=== PATIENT | female | born 1960 | race Caucasian/White ===

== ENCOUNTER 2019-08-30 04:52 | Inpatient (IN) ==
--- NOTE | 2019-08-17 10:38 | PAT Medication Instructions ---
Medication Instructions Date of Service August 17, 2019 Home Medications acetaminophen [Tylenol Arthritis Pain] 650 mg PO Q12H PRN cholecalciferol (vitamin D3) [Vitamin D3] 5,000 unit PO QAM citalopram [Celexa] 20 mg PO QAM cyanocobalamin (vitamin B-12) 2,500 mcg PO QAM ibuprofen 800 mg PO DAILY PRN levothyroxine 50 mcg PO QAM meloxicam 7.5 mg PO QPM PRN multivitamin 1 tab PO QAM vitamin E 670 unit PO WK ASK your surgeon for instructions meloxicam 7.5 mg PO QPM PRN ibuprofen 800 mg PO DAILY PRN STOP taking 2 weeks before surgery vitamin E 670 unit PO WK DO NOT take the morning of surgery multivitamin 1 tab PO QAM cyanocobalamin (vitamin B-12) 2,500 mcg PO QAM cholecalciferol (vitamin D3) [Vitamin D3] 5,000 unit PO QAM Take morning of surgery With a small sip of water, OTHERWISE NOTHING TO EAT OR DRINK AFTER MIDNIGHT: levothyroxine 50 mcg PO QAM citalopram [Celexa] 20 mg PO QAM acetaminophen [Tylenol Arthritis Pain] 650 mg PO Q12H PRN (okay to take up to 4 hours prior to surgery if needed) Take evening before surgery acetaminophen [Tylenol Arthritis Pain] 650 mg PO Q12H PRN (if needed) Other Notes If you have any questions please call us at [phone] or [phone] or [phone] or [phone]
--- NOTE | 2019-08-18 12:51 | Anesthesiology Consultation ---
Date of Service August 18, 2019 Assessment & Plan (1) Encounter for pre-operative examination: Chart Review Chart Review: Acceptable Risk for Surgery (pending surgeon-ordered PCP clearance scheduled 08/19 (Dr. Baker)) and Patient seen in Pre Admission Testing Teaching & Discussion Pre-Anesthesia Teaching/Discussion Notes: Instructed NPO after midnight before surgery,except medications with 15 cc of water. Medication instructions prov ided according to the PAT guidelines. History Surgery Operation Date: 08/30/19 07:00 Proposed Procedures p Left Anterior Total Hip Arthroplasty - Silas Avilez DO Height/Weight Height: 5 ft 2.5 in Weight: 57.2 kg Allergies Allergy/AdvReac Type Severity Reaction Status Date / Time No Known Allergies Allergy Verified 08/11/19 11:31 Medications Home Medications Medication Instructions Recorded Confirmed Last Taken acetaminophen [Tylenol Arthritis 650 mg PO Q12H PRN 08/11/19 08/11/19 Unknown Pain] cholecalciferol (vitamin D3) 5,000 unit PO QAM 08/11/19 08/11/19 Unknown [Vitamin D3] citalopram [Celexa] 20 mg PO QAM 08/11/19 08/11/19 Unknown cyanocobalamin (vitamin B-12) 2,500 mcg PO QAM 08/11/19 08/11/19 Unknown ibuprofen 800 mg PO DAILY PRN 08/11/19 08/11/19 Unknown levothyroxine 50 mcg PO QAM 08/11/19 08/11/19 Unknown meloxicam 7.5 mg PO QPM PRN 08/11/19 08/11/19 Unknown multivitamin 1 tab PO QAM 08/11/19 08/11/19 Unknown vitamin E 670 unit PO WK 08/11/19 08/11/19 Unknown Past Medical History Medical History Anxiety Hypothyroidism Osteoarthritis Exercise / Class Metabolic Activity II 4-5 Yardwork/Stairs/Walk up hill Past Surgical History Surgical History History of bilateral tubal ligation History of carpal tunnel release RIGHT History of tooth extraction FOR ABSCESS TOOTH- A CHILD Past Anesthesia History No Hx of Anesthesia Complications and No Family Hx of Anesthesia Complications History of PONV No Hx of PONV and No Hx of Motion Sickness Social History Smoking Status: Current every day smoker tobacco type: cigarettes Smoking cigarettes per day: TRYING TO DECREASE- 1/2 PPD X 30 OFF AND ON Do You Dip or Chew Tobacco: No Hx Alcohol Use: Yes Alcohol type: beer and wine alcohol intake frequency: a few times a week Hx Substance Use: No Review of Systems Patient denies chest pain, shortness of breath, dyspnea on exertion, reflux, cough, wheezing, palpitations. Physical Exam Vital Signs VITALS BP 111/73 P 69 TEMP 98.2 SP02 98%RA RESP 16 PHYSICAL Full neck and c-spine range of motion. Full TMJ range of motion. TMD 3 finger breaths Mallampati Score 2 Dentition: intact Lungs: clear throughout to auscultation Cardiac: regular rate and rhythm, no murmurs noted Spine: normal Carotid arteries: negative bruit Extremities: no edema Testing Laboratory Results 08/18/19 13:07 08/18/19 13:07 PT 10.3 Seconds (9.0-12.0) 08/18/19 13:07 INR 1.0 (0.9-1.1) 08/18/19 13:07 APTT 27.0 Seconds (21.0-31.0) 08/18/19 13:07 Hemoglobin A1c 5.6 % (4.5-5.6) 08/18/19 13:07 Urine Color Yellow 08/18/19 13:07 Urine Appearance Clear (Clear) 08/18/19 13:07 Urine pH 5.0 (4.5-7.5) 08/18/19 13:07 Ur Specific [place] 1.024 (1.000-1.030) 08/18/19 13:07 Urine Protein Negative (Negative) 08/18/19 13:07 Urine Glucose (UA) Negative (Negative) 08/18/19 13:07 Urine Ketones Negative (Negative) 08/18/19 13:07 Urine Nitrite Negative (Negative) 08/18/19 13:07 Ur Leukocyte Esterase Negative (Negative) 08/18/19 13:07 Blood Type O Positive 08/18/19 13:07 Antibody Screen NEGATIVE 08/18/19 13:07 Electrocardiogram Date: 08/18/19 Findings: + NSR @ (69) Chest X-Ray Date: 08/18/19 Findings: + NAD
--- NOTE | 2019-08-18 13:51 | XRay Report ---
XR chest Pre-admission PA/Lat CLINICAL HISTORY: Preoperative chest COMPARISON STUDY: No previous studies for comparison. FINDINGS: The cardiac and mediastinal contours are normal. There is no evidence of focal pulmonary co nsolidation. There is no evidence of failure. No pleural effusions are visualized.[ IMPRESSION: No active disease in the chest. ACT 112: Negative or not required by law. Electronically signed by: Adama Vang M.D. 08/18/2019 1:50 PM
[2019-08-18 14:03] LABS: Appearance Urine Clear (Clear); Bilirubin Urine Negative (Negative); Blood Urine Negative (Negative); Color Urine Yellow; Glucose Urine UA Negative (Negative); Ketones Urine Negative (Negative); Leukocyte Esterase Urine Negative (Negative); Nitrite Urine Negative (Negative); Protein Urine Negative (Negative); Specific Gravity Urine 1.024 (1.000-1.030); Urobilinogen Urine Negative (Negative)
[2019-08-18 14:07] LABS: Basophils # (auto) 0.02 K/uL (0-0.2); Basophils % (auto) 0.4 %; Eosinophils # (auto) 0.06 K/uL (0-0.5); Eosinophils % (auto) 1.1 %; Hematocrit (blood only) 37.2 % (37-47); Hemoglobin 12.4 g/dL (12.0-16.0); Immature Granulocytes # (auto) 0.02 K/uL (0.00-0.02); Immature Granulocytes % (auto) 0.4 %; Lymphocytes # (auto) 2.24 K/uL (1.2-3.4); Lymphocytes % (auto) 39.9 %; Mean Corpuscular Hemoglobin 31.2 pg (25-34); Mean Corpuscular Hgb Conc 33.3 g/dL (32-36); Mean Corpuscular Volume 93.5 fL (80-100); Mean Platelet Volume 10.2 fL (7.4-10.4); Monocytes # (auto) 0.38 K/uL (0.11-0.59); Monocytes % (auto) 6.8 %; Neutrophils % (auto) 51.4 %; Platelet Count 285 K/uL (130-400); RDW Coefficient of Variation 12.1 % (11.5-14.5); RDW Standard Deviation 41.3 fL (36.4-46.3); Red Blood Count 3.98 M/uL (4.2-5.4); White Blood Count 5.62 K/uL (4.8-10.8)
[2019-08-18 14:10] LABS: Albumin Level 3.9 gm/dl (3.4-5.0); BUN Creatinine Ratio 30.1 (10-20); Calcium 9.3 mg/dl (8.5-10.1); Creatinine Clr Calc Pharmacy 83.7 ml/min; Est GFR (African American) 117.3; Est GFR (Non-African American) 101.2; Potassium 4.6 mmol/L (3.5-5.1)
[2019-08-18 14:13] LABS: Estimated Average Glucose 114 mg/dl; Hemoglobin A1C 5.6 % (4.5-5.6)
[2019-08-18 14:14] LABS: Prothrombin Time 10.3 Seconds (9.0-12.0)
--- NOTE | 2019-08-18 15:04 | Electrocardiogram Report ---
Test Reason : Blood Pressure : / mmHG Vent. Rate : 069 BPM Atrial Rate : 069 BPM P-R Int : 120 ms QRS Dur : 072 ms QT Int : 412 ms P-R-T Axes : 022 039 049 degrees QTc Int : 441 ms Normal sinus rhythm Normal ECG No previous ECGs available Confirmed by Maldonado Sierra ([id number]) on 08/18/2019 3:04:30 PM Referred By: Silas Avilez Confirmed By:Ebenezer Sierra
--- NOTE | 2019-08-29 19:15 | History & Physical Report ---
Date of Service August 29, 2019 Assessment & Plan (1) Degenerative joint disease of left hip: I have indicated the patient for left anterior total hip replacement. The risks, benefits and complications of surgery were explained to the patient which include but not limited to infection, acute blood loss, DVT/PE, injury to nerves, vessels, bone, soft tissue, arthrofibrosis, chronic pain, failure of the prosthesis, hip dislocation, leg length discrepancy, need for additional surgery, cardiac and pulmonary events and . The patient wished to proceed with surgery and informed consent was obtained at this time. We will plan for ASA BID post-operatively for DVT prophylaxis. Upon discharge the patient will be discharged home with home health services. Appropriate clearances by PCP were obtained. History of Present Illness Chief Complaint: Left hip pain/djd Primary Care Provider: Suzan Baker MD The patient is a 59 year old female who presents with complaints of severe left hip pain and DJD. The patient has failed outpatient conservative treatments to this point which included NSAIDs, IA corticosteroid injection and a home exercise/walking program. The patient's pain and limited function have progressed to the point where they severely hinder their activities of daily living and they no longer tolerate exercise programs. They are requesting to proceed with total hip replacement surgery. Allergies Allergy/AdvReac Type Severity Reaction Status Date / Time Bee Stings Allergy Severe Swelling Uncoded 08/30/19 06:01 of Lip/Tongue/Throat Home Medications Home Medications Medication Instructions Recorded Confirmed Type acetaminophen [Tylenol Arthritis 650 mg PO Q12H PRN 08/11/19 08/30/19 History Pain] cholecalciferol (vitamin D3) 5,000 unit PO QAM 08/11/19 08/30/19 History [Vitamin D3] citalopram [Celexa] 20 mg PO QAM 08/11/19 08/30/19 History cyanocobalamin (vitamin B-12) 2,500 mcg PO QAM 08/11/19 08/30/19 History ibuprofen 800 mg PO DAILY PRN 08/11/19 08/30/19 History levothyroxine 50 mcg PO QAM 08/11/19 08/30/19 History meloxicam 7.5 mg PO QPM PRN 08/11/19 08/30/19 History multivitamin 1 tab PO QAM 08/11/19 08/30/19 History vitamin E 670 unit PO WK 08/11/19 08/30/19 History Past Med/Surg History Medical History Anxiety Hypothyroidism Osteoarthritis Surgical History History of bilateral tubal ligation History of carpal tunnel release RIGHT History of tooth extraction FOR ABSCESS TOOTH- A CHILD Social History Preferred Language: Lebanese Communication Ability: Effective Molding And Trim Installer Required: No Beliefs That Will Affect Care: None Current Living Situation: Spouse and Family Other Information That Helps Us Care for You: No Feels Safe at Home: Yes Safety Concerns: Feels Safe At This Time Smoking Status: Current every day smoker Tobacco Type: cigarettes ; Cigarettes Per Day: TRYING TO DECREASE- 1/2 PPD X 30 OFF AND ON ; Do You Dip or Chew Tobacco: No ; 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 Constitutional: WD/WN, vitals as above Eyes: PERRL, conjunctivae normal, anicteric sclerae ENMT: external ear and nose normal, oropharynx normal Neck: trachea midline, no thyromegaly Respiratory: normal respiratory effort, lungs clear to auscultation Cardiovascular: RRR, no murmur, no edema Gastrointestinal (Abdomen): normal bowel sounds, soft, nontender, no hepatosplenomegaly Musculoskeletal: no cyanosis or clubbing, extremities motor strength 5/5 Skin: no rashes, warm and dry Neurologic: patellar DTR's 2+ bilat, sensation intact Psychiatric: A+Ox3, euthymic affect Lymphatic: no cervical or axillary lymphadenopathy Results & Data Diagnostic Findings Multiple views of the hip demonstrates severe DJD with complete loss of the joint space. +osteophytes, +sclerosis, +subchondral cysts.
[2019-08-30] MEDS ORDERED: METOCLOPRAMIDE HCL 10 MG TABLET PO SCH (06:00)
[2019-08-30] MEDS ORDERED: GABAPENTIN 600 MG DOSE PO SCH (06:00)
[2019-08-30] MEDS ORDERED: TRANEXAMIC ACID 1,000 MG **IV Pre-op IV SCH (06:00)
[2019-08-30] MEDS ORDERED: TRANEXAMIC ACID 1,000 MG **IV Intra-op IV SCH (06:00)
[2019-08-30] MEDS ORDERED: CEFAZOLIN 2000MG 2,000 MG/15 ML SYR IV SCH (06:00)
[2019-08-30] MEDS ORDERED: FAMOTIDINE 20 MG TAB PO SCH (06:00)
[2019-08-30] MEDS ORDERED: CeleBREX 200 MG CAP PO SCH (06:00)
[2019-08-30] MEDS ORDERED: dexAMETHasone 4 MG TAB PO SCH (06:00)
[2019-08-30] MEDS ORDERED: ROPIVACAINE 0.5% HCL/PF 150 MG, BUPIVACAINE 0.5% MPF 30 ML, EPINEPHrine 30MG/30ML (OR U... INSTIL SCH (06:00)
[2019-08-30] MEDS ORDERED: LR 500ML BOLUS, THEN 15ML/HR IV SCH (06:00)
[2019-08-30] MEDS ORDERED: ACETAMINOPHEN 500 MG TAB PO SCH (06:00)
[2019-08-30] MEDS ORDERED: BUPIVACAINE 0.5 % 5 MG/1 ML PF 10ML VIAL ONE (06:39)
[2019-08-30] MEDS ORDERED: LIDOCAINE HCL 2% 2 ML VIAL/AMP(20MG/ML) INFIL ONE (06:40)
[2019-08-30] MEDS ORDERED: MIDAZOLAM HCL 1 MG/ML 2ML VIAL ONE ×2 (06:40)
[2019-08-30] MEDS ORDERED: PROPOFOL IV EMULSION 10 MG/ML 20 ML VIAL IV ONE (06:40)
[2019-08-30] MEDS ORDERED: fentaNYL citrate 100 MCG/2 ML VIAL ONE (06:40)
[2019-08-30] MEDS ORDERED: ONDANSETRON INJ 2 MG/ML 2 ML VIAL ONE (06:40)
--- NOTE | 2019-08-30 06:45 | History & Physical Bridge Note ---
Date of Service August 30, 2019 History & Physical Bridge Note I have examined the patient, reviewed the History & Physical and in the interval since the performance of the History & Physical I have noted the following changes of clinical significance: no changes noted
[2019-08-30] MEDS ORDERED: ATROPINE SULFATE 0.1 MG/ML 10ML SYR IV PRN (06:48)
[2019-08-30] MEDS ORDERED: ePHEDrine sulfate 50 MG/ML AMP IV PRN (06:48)
[2019-08-30] MEDS ORDERED: BACITRACIN INJ 50,000 UNIT VIAL ONE (06:49)
[2019-08-30] MEDS ORDERED: ORTHO JOINT ANESTHETIC ONE (06:49)
[2019-08-30] MEDS ORDERED: PHENYLEPHRINE 100MCG/ML 5ML SYR ONE (07:48)
[2019-08-30] MEDS ORDERED: ePHEDrine sulfate 50 MG/ML SYR ONE (07:48)
--- NOTE | 2019-08-30 08:52 | Post Operative Brief Note ---
Immediate Post Op Note v1 Date of Surgery August 30, 2019 Pre & Post Diagnosis Operation Date: 08/30/19 07:00 Pre-Op Diagnosis: LEFT HIP OSTEOARTHRITIS Post-Op Diagnosis: LEFT HIP OSTEOARTHRITIS I identified the patient and participated in the time-out.: Yes Procedure Operation Date: 08/30/19 07:00 Actual Procedures p Left Anterior Total Hip Arthroplasty(Left) - Silas Avilez DO Surgeon Silas Avilez DO Artificial Snow Making Machine Operator Reji Cunningham Estimated Blood Loss 75 Findings Consistent with Post-Op Diagnosis Fluids 1400 cc LR Specimens femoral head Anesthesia Type Spinal MAC Complications none Disposition Disposition: Recovery Room Overlapping Procedure I was present for: the critical portions of procedure. I was immediately available: during the entire case. Back up surgeon: was not required during procedure.
--- NOTE | 2019-08-30 08:55 | Operative Report ---
Post Operative Report Pre & Post Diagnosis Operation Date: 08/30/19 07:00 Pre-Op Diagnosis: LEFT HIP OSTEOARTHRITIS Post-Op Diagnosis: LEFT HIP OSTEOARTHRITIS I identified the patient and participated in the time-out.: Yes Procedure Operation Date: 08/30/19 07:00 Actual Procedures p Left Anterior Total Hip Arthroplasty(Left) - Silas Avilez DO Surgeon Silas Avilez DO Fermenter Helper Reji Cunningham Estimated Blood Loss 75 Findings Consistent with Post-Op Diagnosis Fluids 1400 cc LR Specimens femoral head Anesthesia Type Spinal MAC Complications none Disposition Disposition: Recovery Room Indications The patient is a 59-year-old female who presents with severe progressive left hip DJD who has failed outpatient conservative treatments. I indicated the patient for a anterior total hip replacement and the risks and benefits were explained in detail which include but not limited to infection, bleeding, blood clot, damage to surrounding bone, nerves, vessels, soft tissue, hip dislocation, failure of the prosthesis, leg length discrepancy, need for additional surgery and . The patient agreed to proceed with replacement of the hip and informed consent was obtained. Appropriate clearances were obtained. Description of Procedure COMPONENTS USED: [employer] hip system: Acetabulum size 48, femur size 6 high offset, femoral head 32-3, liner 4832, acetabular screw 25 mm x 1. DESCRIPTION OF PROCEDURE: Following satisfactory spinal anesthesia, the patient was placed supine on the OR table. The right leg was placed in the well leg crowder and the left leg in the traction device. The left leg was prepared with ChloraPrep and draped sterilely. A surgical timeout was performed, patient identified and site julia verified. Appropriate antibiotics were given. A standard anterior approach in the interval between the sartorius and tensor muscles was performed. Dissection was carried down through subcutaneous tissues. Electrocautery was utilized for hemostasis. Circumflex femoral vessels were identified, tied and ligated. The anterior capsular fat pad was removed and the capsulotomy was performed revealing the arthritic femoral neck and head. A femoral neck cut was made with reciprocating saw and the bone fragments removed. The acetabular self-retraining retractor was placed. Acetabular reaming was completed under fluoroscopic guidance, a 48 shell was impacted into an anatomic position and secured with a dome screw. Local anesthetic was placed and following irrigation, the polyethylene liner was placed. The femur was placed into position of external rotation, extension and adduction. Femoral canal was prepared up to the size 6 high offset. Trial reduction with a -3 neck length head showed good soft tissue tension, leg lengths restored, and good fit and fill of the proximal canal using fluoroscopic landmarks. The hip was dislocated. The trial component was removed. The final implant was placed. The hip was irrigated with sterile saline solution and reduced. A Betadine soak was performed. After 3 minutes, the hip was once more irrigated with copious sterile saline solution with bacitracin. Malika-incisional soft tissue was injected utilizing [place] [employer] which includes a combination of Ropivicaine 0.5% 150mg, Bupivicaine 0.5%/Epinephrine 1:200,000 30ml, Toradol 30mg, Dexamethasone 4mg, Ketamine 10mg, Clonidine 100mcg and NSS 30ml solution. The capsule was then closed with 1-0 Vicryl interrupted figure of eight sutures. The fascia was closed with a running suture of #1 Vicryl, the subcutaneous tissues with 2-0 Vicryl and the skin with a running subcuticular stitch of 3-0 V-Loc. Dermabond prineo and a dry dressing were applied. The patient tolerated the procedure well and was transported to PACU in stable condition. Due to the complex nature of the procedure, the entire surgery was performed with the operational assistance of Reji Cunningham PA-C. The professional nursing assistant, under direct supervision, was involved in the actual performance of all aspects of the surgical procedure including patient positioning, hemostasis, tissue r etraction, instrument management and wound closure. I attest to the content of the Intraoperative Record and any orders documented therein. Any exceptions are noted below.
[2019-08-30] MEDS ORDERED: METOCLOPRAMIDE HCL INJ 5 MG/ML 2 ML VIAL IV PRN (08:56)
[2019-08-30] MEDS ORDERED: OXYCODONE HCL IR 5 MG TAB (IMMEDIATE RELEASE) PO PRN (08:56)
[2019-08-30] MEDS ORDERED: MAGNESIUM HYDROXIDE SUSP 30 ML UDC PO PRN (08:56)
[2019-08-30] MEDS ORDERED: NALOXONE HCL 0.4 MG/1 ML VIAL/CARP IV PRN (08:56)
[2019-08-30] MEDS ORDERED: bisacodyL 10 MG SUPP PR PRN (08:56)
[2019-08-30] MEDS ORDERED: ONDANSETRON INJ 2 MG/ML 2 ML VIAL IV PRN (08:56)
--- NOTE | 2019-08-30 09:29 | XRay Report ---
XR hip 1V LT w pelvis CLINICAL HISTORY: Left hip replacement COMPARISON: None. DISCUSSION: There are postsurgical changes of a total left hip arthroplasty. The acetabular and femor al components appear well seated. There is no dislocation. There is gas present within the soft tissu es consistent with recent surgery. IMPRESSION: Postsurgical changes of a total left hip arthroplasty. No evidence of dislocation. ACT 112: Negative or not required by law. Electronically signed by: Adama Vang M.D. 08/30/2019 9:28 AM
--- NOTE | 2019-08-30 11:10 | Fluoroscopy Report ---
FL hip LT 1V CLINICAL HISTORY: LEFT ANTERIOR THAhip replacement COMPARISON STUDY: None FLUOROSCOPY TIME: 42 seconds NUMBER OF FLUOROSCOPIC IMAGES: 2 FINDINGS: Image intensifier was utilized for a left total hip arthroplasty. IMPRESSION: Image intensifier was utilized for a total left hip arthroplasty. ACT 112: Negative or not required by law. The above report was generated using voice recognition software. It may contain grammatical, syntax or spelling errors. Electronically signed by: Eddy Watkins M.D. 08/30/2019 11:09 AM
--- NOTE | 2019-08-30 11:48 | Anesthesiology Progress Note ---
Date of Service August 30, 2019 Anesthesia Post Procedure Vital Signs Vital Signs: Temp Pulse Pulse Resp BP Pulse Ox 08/30/19 11:02 36.4 C L 70 18 97/61 L 100 08/30/19 10:31 36.3 C L 67 18 98/62 L 98 08/30/19 10:00 36.5 C 74 16 91/58 L 100 08/30/19 09:45 36.4 C L 66 16 92/58 L 100 08/30/19 09:35 61 12 90/54 L 100 08/30/19 09:25 78 13 82/56 L 100 08/30/19 09:15 73 15 86/59 L 100 08/30/19 09:08 36.8 C 78 12 86/50 L 98 08/30/19 05:34 36.4 C L 73 20 108/73 100 Pain Intensity Left Hip: Pain Intensity: 4 Transfer of Care Handoff Completed per policy Notes Mental Status: alert / awake / arousable and participated in evaluation Patient Amnestic to Procedure: Yes Nausea / Vomiting: adequately controlled Pain: adequately controlled Airway Patency, RR, SpO2: stable & adequate BP & HR: stable & adequate Hydration State: stable & adequate Neuraxial Anesthesia: was administered and sensory block is resolving Anesthetic Complications: no major complications apparent
[2019-08-30] MEDS: KETOROLAC TROMETHAMINE 15 MG/ML VIAL IV SCH ×3 (12:08→22:39)
[2019-08-30] MEDS: MULTIVITAMIN TAB PO SCH (13:09)
[2019-08-30] MEDS: DOCUSATE SODIUM 100 MG CAP PO SCH ×2 (13:09→21:13)
[2019-08-30] MEDS: SODIUM CHLORIDE 0.9% 1000ML 1,000 ML IV SCH ×2 (13:10→18:32)
[2019-08-30] MEDS: ACETAMINOPHEN 500 MG TAB PO SCH ×2 (13:49→21:14)
--- NOTE | 2019-08-30 14:20 | Orthopedic Progress Note ---
Date of Service August 30, 2019 Assessment & Plan (1) Degenerative joint disease of left hip: s/p L anterior BART -ancef x 24 -DVT ppx: SCDs, TEDs, ASA BID -WBAT LLE -PT/OT -PO XR demonstrates well aligned well fixed prosthesis, without fracture/dislocation -am labs -DC planning Admission and Anticipated Discharge Date Admission Date: August 30, 2019 Subjective Post Operative Progress Note Patient seen sitting up in bed, comfortable, denies complaints, pain well controlled, no acute issues. Still feeling effects of spinal anesthesia. Review of Systems Review of Systems: All systems reviewed & are unremarkable except as noted in HPI & below Constitutional: as per Subjective / HPI Physical Exam Physical Exam: LLE PE limited secondary to spinal, +2 DP pulse compartments soft NT, dressing CDI Constitutional: WD/WN, vitals as above Results & Data ([facility]) Vital Signs (Past 12 Hours) Vital Signs Temp Pulse Pulse Resp BP Pulse Ox 08/30/19 13:10 36.4 C L 84 16 98/64 L 100 08/30/19 12:01 36.3 C L 61 16 95/62 L 100 08/30/19 11:02 36.4 C L 70 18 97/61 L 100 08/30/19 10:31 36.3 C L 67 18 98/62 L 98 08/30/19 10:00 36.5 C 74 16 91/58 L 100 08/30/19 09:45 36.4 C L 66 16 92/58 L 100 08/30/19 09:35 61 12 90/54 L 100 08/30/19 09:25 78 13 82/56 L 100 08/30/19 09:15 73 15 86/59 L 100 08/30/19 09:08 36.8 C 78 12 86/50 L 98 08/30/19 05:34 36.4 C L 73 20 108/73 100
[2019-08-30] MEDS: CEFAZOLIN 1000MG 1,000 MG/7.5 ML SYR IV SCH ×2 (15:12→22:59)
[2019-08-30] MEDS ORDERED: SENNA 8.6 MG TAB PO SCH (21:00)
[2019-08-31 05:38] LABS: Eosinophils # (auto) 0.01 K/uL (0-0.5); Eosinophils % (auto) 0.1 %; Hemoglobin 9.2 g/dL (12.0-16.0); Immature Granulocytes # (auto) 0.03 K/uL (0.00-0.02); Immature Granulocytes % (auto) 0.3 %; Lymphocytes # (auto) 1.42 K/uL (1.2-3.4); Lymphocytes % (auto) 14.6 %; Mean Corpuscular Hemoglobin 31.9 pg (25-34); Mean Corpuscular Hgb Conc 34.1 g/dL (32-36); Mean Corpuscular Volume 93.8 fL (80-100); Mean Platelet Volume 10.1 fL (7.4-10.4); Monocytes % (auto) 8.2 %; Neutrophils # (auto) 7.47 K/uL (1.4-6.5); Neutrophils % (auto) 76.8 %; Platelet Count 221 K/uL (130-400); RDW Standard Deviation 41.1 fL (36.4-46.3); Red Blood Count 2.88 M/uL (4.2-5.4); White Blood Count 9.73 K/uL (4.8-10.8)
[2019-08-31] MEDS: KETOROLAC TROMETHAMINE 15 MG/ML VIAL IV SCH (05:59)
[2019-08-31] MEDS: ACETAMINOPHEN 500 MG TAB PO SCH ×2 (06:00→13:34)
[2019-08-31 06:15] LABS: Calcium 8.4 mg/dl (8.5-10.1); Creatinine Clr Calc Pharmacy 106.8 ml/min; Est GFR (African American) 127.1; Est GFR (Non-African American) 109.6; Potassium 4.2 mmol/L (3.5-5.1)
--- NOTE | 2019-08-31 08:01 | Anesthesiology Progress Note ---
Date of Service August 31, 2019 Anesthesia Post Procedure Vital Signs Vital Signs: Temp Pulse Pulse Resp BP Pulse Ox 08/31/19 07:24 36.9 C 80 16 104/70 96 08/31/19 04:09 36.7 C 74 16 92/52 L 96 08/30/19 23:02 36.4 C L 68 18 93/61 L 97 08/30/19 20:00 36.7 C 85 16 104/68 99 08/30/19 15:17 36.7 C 72 16 92/54 L 98 08/30/19 13:10 36.4 C L 84 16 98/64 L 100 08/30/19 12:01 36.3 C L 61 16 95/62 L 100 08/30/19 11:02 36.4 C L 70 18 97/61 L 100 08/30/19 10:31 36.3 C L 67 18 98/62 L 98 08/30/19 10:00 36.5 C 74 16 91/58 L 100 08/30/19 09:45 36.4 C L 66 16 92/58 L 100 08/30/19 09:35 61 12 90/54 L 100 08/30/19 09:25 78 13 82/56 L 100 08/30/19 09:15 73 15 86/59 L 100 08/30/19 09:08 36.8 C 78 12 86/50 L 98 Pain Intensity Left Hip: Pain Intensity: 4 Notes Mental Status: alert / awake / arousable and participated in evaluation Nausea / Vomiting: adequately controlled Pain: adequately controlled Airway Patency, RR, SpO2: stable & adequate BP & HR: stable & adequate Hydration State: stable & adequate
[2019-08-31] MEDS: DOCUSATE SODIUM 100 MG CAP PO SCH (08:29)
[2019-08-31] MEDS: MULTIVITAMIN TAB PO SCH (08:30)
[2019-08-31] MEDS ORDERED: CeleBREX 200 MG CAP PO SCH (09:00)
[2019-08-31] MEDS ORDERED: ASPIRIN 325 MG ECTAB PO SCH ×2 (09:00→10:30)
--- NOTE | 2019-08-31 10:31 | Orthopedic Progress Note ---
Date of Service August 31, 2019 Assessment & Plan (1) Degenerative joint disease of left hip: s/p L anterior BART POD#1 -ancef x 24 -DVT ppx: SCDs, TEDs, ASA BID -WBAT LLE -PT/OT -PO XR demonstrates well aligned well fixed prosthesis, without fracture/dislocation -am labs- hgb 9.2, see above -DC planning - Home with HH Admission and Anticipated Discharge Date Admission Date: August 30, 2019 Subjective Post Operative Progress Note Patient seen sitting up in bed, comfortable, denies complaints, pain well controlled, no acute issues. Denies F/C/N/V/SOB/CP. Review of Systems Review of Systems: All systems reviewed & are unremarkable except as noted in HPI & below Constitutional: as per Subjective / HPI Physical Exam Physical Exam: LLE NVSI +EHL/FHL/TA/GS SILT grossly, +2 DP pulse, compartments soft NT, dressing cdi. Constitutional: WD/WN, vitals as above Results & Data ([place]) Vital Signs (Past 12 Hours) Vital Signs Temp Pulse Resp BP Pulse Ox 08/31/19 07:24 36.9 C 80 16 104/70 96 08/31/19 04:09 36.7 C 74 16 92/52 L 96 08/30/19 23:02 36.4 C L 68 18 93/61 L 97 Laboratory Results 08/31/19 08/31/19 Range/Units 05:03 05:03 WBC 9.73 (4.8-10.8) K/uL RBC 2.88 L (4.2-5.4) M/uL Hgb 9.2 L (12.0-16.0) g/dL Hct 27.0 L (37-47) % MCV 93.8 (80-100) fL MCH 31.9 (25-34) pg MCHC 34.1 (32-36) g/dL RDW Std Deviation 41.1 (36.4-46.3) fL RDW Coeff of Wong 12.0 (11.5-14.5) % Plt Count 221 (130-400) K/uL MPV 10.1 (7.4-10.4) fL Immature Gran % (Auto) 0.3 % Neut % (Auto) 76.8 % Lymph % (Auto) 14.6 % Sebastian % (Auto) 8.2 % Eos % (Auto) 0.1 % Baso % (Auto) 0.0 % Immature Gran # (Auto) 0.03 H (0.00-0.02) K/uL Neut # (Auto) 7.47 H (1.4-6.5) K/uL Lymph # (Auto) 1.42 (1.2-3.4) K/uL Sebastian # (Auto) 0.80 H (0.11-0.59) K/uL Eos # (Auto) 0.01 (0-0.5) K/uL Baso # (Auto) 0.00 (0-0.2) K/uL Sodium 140 (136-145) mmol/L Potassium 4.2 (3.5-5.1) mmol/L Chloride 110 H (98-107) mmol/L Carbon Dioxide 26 (21-32) mmol/L Anion Gap 4.0 (3-11) BUN 14 (7-18) mg/dl Creatinine 0.47 L (0.6-1.2) mg/dl Est Cr Clr Drug Dosing 106.8 ml/min Est GFR ( Amer) 127.1 Est GFR (Non-Af Amer) 109.6 BUN/Creatinine Ratio 29.0 H (10-20) Glucose 113 H (70-99) mg/dl Calcium 8.4 L (8.5-10.1) mg/dl
[2019-08-31 15:04] VITALS: BP 120/65; PULSE 86; TEMP 98.6; O2SAT 100
--- NOTE | 2019-08-31 18:10 | Discharge Summary ---
Date of Service August 31, 2019 Admission HPI Per Admitting Provider The patient is a 59 year old female who presents with complaints of severe left hip pain and DJD. The patient has failed outpatient conservative treatments to this point which included NSAIDs, IA corticosteroid injection and a home exercise/walking program. The patient's pain and limited function have progressed to the point where they severely hinder their activities of daily living and they no longer tolerate exercise programs. They are requesting to proceed with total hip replacement surgery. Principal Diagnosis Left anterior total hip replacement -left hip djd Discharge Exam LLE NVSI +EHL/FHL/TA/GS SILT grossly, +2 DP pulse, compartments soft NT, dressing cdi. Constitutional WD/WN, vitals as above Discharge Data Allergies Allergy/AdvReac Type Severity Reaction Status Date / Time Bee Stings Allergy Severe Swelling Uncoded 08/30/19 06:01 of Lip/Tongue/Throat Consultations 08/31/19 08:00 Consult Case Management - Discharge Planning Routine Procedures Performed Operation Date: 08/30/19 07:00 Actual Procedures p Left Anterior Total Hip Arthroplasty(Left) - Silas Avilez DO Ordered Studies 08/30/19 07:00 FL fluoroscopy <1hr Routine FL hip LT 1V Routine Hospital Course (1) Degenerative joint disease of left hip: The patient is a 59 -year-old female who presents with long standing history of severe left hip DJD and failed outpatient conservative treatments. The patient's symptoms have progressed to the point where it has been difficult to perform even normal activities of daily living. I indicated the patient for a left anterior total hip arthroplasty, the risks, benefits and complications of the procedure include but not limited to infection, bleeding, damage to bone, nerves, vessels, surrounding soft tissue, may develop blood clots, loss of function, leg length discrepancy, dislocation, failure of the components, loosening of the components, the need for additional surgery and . The patient wished to proceed with surgery at this time and informed consent was obtained. Hospital Course: On 08/30/19 the patient was taken to the operating room, adequate anesthesia administered and underwent a left anterior total hip arthroplasty. The patient tolerated the procedure well and was taken to the PACU in stable condition. Post-operatively the patient was started on a DVT ppx medication and given appropriate IV antibiotics. Consults were placed to physical therapy, occupational therapy and case management. On POD#1, the patient did well ov ernight and their pain was well controlled. Labs were drawn and the Hgb was 9.2. The patient progressed well with PT. Dressings were changed at this time and the incision was clean, dry and intact. On POD#2, The patients hospital stay was relatively uneventful and they were deemed stable by the orthopedic team and consultants to be discharged home with HH on 08/31/19. Discharge Instructions: Upon discharge the patient may weight bear as tolerates through their operative extremity. They were instructed to keep the incision clean and dry at all times. The patient may shower but should not submerge the incision, avoid bathing, pools and hot tubes. The patient was given a script for pain medication and should take as instructed. The patient was given a script for DVT ppx 325mg ASA BID and should take as directed. The patient was instructed to not drive or travel for long distances until cleared to do so. If the patient develops any symptoms of fevers, chills, nausea, vomiting, increased redness, swelling, pain or drainage from the surgical site, they should notify the office and/or proceed to the nearest emergency room. The patient should follow up in 10-14 days after surgery for their routine post-operative follow-up appointment and should call the office to confirm the date and time. s/p L anterior BART POD#1 -ancef x 24 -DVT ppx: SCDs, TEDs, ASA BID -WBAT LLE -PT/OT -PO XR demonstrates well aligned well fixed prosthesis, without fracture/dislocation -am labs- hgb 9.2, see above -DC planning - Home with HH Total Time Total Time Spent Total Time Spent (In Minutes): 30 minutes Discharge Plan Discharge Items Patient Disposition: Home - Home Health Services Reason For Visit: LEFT HIP OSTEOARTHRITIS Discharge Diagnosis: Left total hip replacement -left hip djd Condition on Discharge: Good Activity: Per Instructions section Lifting: Wait until after follow-up appointment Bathing: Keep incision dry Bathing Comment: No bathing, pools or hot tubs Sexual Activity: Wait until after follow-up appointment Exercise/Sports: Wait until after follow-up appointment Driving/Machine Use: No driving Weightbearing: Full weightbearing Non-emergency contact: Primary Care Provider and Surgeon Call non-emergency contact if: you have any medication questions, your symptoms worsen, your pain is not controlled, your pain is worsening, your pain is unusual for you, your pain is concerning for you, you have a fever, your temperature is above 101, your wound has increased redness, your wound has increased drainage and your wound pain has increased Follow-up/Referrals: Suzan Baker MD [Primary Care Provider] - Diet: Regular Addtl Attending Provider Instructions: ACTIVITY RECOMMENDATIONS: SELF CARE INSTRUCTIONS AFTER TOTAL HIP REPLACEMENT : Direct Anterior Approach Until the incision and soft tissues around your hip have healed, there is a possibility that the hip prosthesis could dislocate. A. Hip flexion ( Up & Down out of chair or steps ) may be difficult. This is normal. B. Numbness in front of the thigh is also normal for a few weeks. C. Use hand rails when walking on stairs. D. Wear low heeled shoes with non-slip soles. E. Be sure that your floors are free of things that could trip you - throw rugs, electrical cords, small objects. Avoid wet and waxed floors, especially with crutches and canes. F. Try to walk several times a day with rest periods between. G. Continue with all the exercises taught to you in the hospital. Again, make walking a part of your daily routine. SPECIAL CARE INSTRUCTIONS: VERY IMPORTANT TO READ AND REVIEW A. You may still be at risk for phlebitis and blood clots. 1. Wear surgical stockings (DUDLEY hose) for 2 weeks after surgery to improve circulation and reduce swelling. 2. Take Aspirin 325mg twice daily for 4 weeks or as directed by your doctor. This is your blood thinner. 3. High risk patients may be prescribed a stronger blood thinner if necessary. 4. If you are on Coumadin normally, your family doctor/wine and spirits clerk should monitor your blood work. Expect a phone call the day of or the day after bloodwork is drawn to adjust your dosage. B. You must take antibiotics before having dental work, bladder, bowel and other surgery. Your doctor will provide you with a permanent card to carry describing precautions. C. Call [facility] if you have a fever, redness or swelling around the incision, cloudy drainage from incision, or sudden increase in pain in your hip, not relieved by your regular pain medication. D. Please call the office at if you have any concerns or questions about your operation or recovery. * YOU MAY SHOWER, NO TUB BATHS UNTIL CLEARED BY YOUR DOCTOR. - Keep an extra close eye on the top portion of your incision. Be sure to ke ep clean & dry. * WEAR DUDLEY HOSE 20 HOURS PER DAY FOR 2 WEEKS. * YOU MAY PROGRESS FROM A WALKER, TO A CANE, TO INDEPENDENT AT YOUR OWN PACE. * MOST PATIENTS WILL HAVE HOME NURSING FOR THERAPY. IF YOU DECIDE TO DO OUTPATIENT PHYSICAL THERAPY, PLEASE SCHEDULE THIS 3 TIMES PER WEEK. * DERMABOND Prineo- This is a mesh tape dressing that is covered with glue. It should remain in place until the incision is properly healed, usually 10-14 days. This dressing is designed to naturally slough off. You may trim the excess mesh tape as it peels off. Incision may be briefly wet in a shower. Dry immediately by blotting with a clean, dry towel. Do not bath or swim until instructed by your doctor. Do not scratch, rub, or pick at the dressing. Do not apply any topical ointments or lotions until dressing is completely removed and/or instructed by your doctor. There may be a small piece of suture material at one end of your incision. Do not pull or trim this. If it is bothersome or catching on clothing, you may cover it with a band-aid. FOLLOW UP VISIT: If appointment is not already scheduled: Please call [facility] to make a follow-up appointment for 2 weeks after your surgery at . Pending Studies at Discharge: No Stand-Alone Forms: My [facility], Opioid Pain Management, Smoking Cessation Medications and DC Order Prescriptions: New celecoxib [Celebrex] 200 mg Capsule 200 mg PO BID PRN (Reason: pain/inflammation) Qty: 28 RF: 0 acetaminophen 500 mg Tablet 1,000 mg PO Q8 PRN (Reason: pain/fevers) Qty: 90 RF: 0 aspirin 325 mg Tablet,Delayed Release (Dr/Ec) 325 mg PO BID Qty: 56 RF: 0 oxycodone 5 mg Tablet 5 mg PO Q6H MDD 4 tabs PRN (Reason: pain) Qty: 30 RF: 0 sennosides [Senokot] 8.6 mg Tablet 17.2 mg PO HS PRN (Reason: constipation) Qty: 28 RF: 0 Continued vitamin E 600 unit Capsule 670 unit PO WK RF: 0 citalopram [Celexa] 20 mg Tablet 20 mg PO QAM RF: 0 levothyroxine 50 mcg Tablet 50 mcg PO QAM RF: 0 cholecalciferol (vitamin D3) [Vitamin D3] 125 mcg (5,000 unit) Tablet 5,000 unit PO QAM RF: 0 cyanocobalamin (vitamin B-12) 2,500 mcg Tablet 2,500 mcg PO QAM RF: 0 multivitamin Tablet 1 tab PO QAM RF: 0 Discontinued ibuprofen 800 mg Tablet 800 mg PO DAILY PRN (Reason: Pain) RF: 0 acetaminophen [Tylenol Arthritis Pain] 650 mg Tablet Extended Release 650 mg PO Q12H PRN (Reason: Pain) RF: 0 meloxicam 7.5 mg Tablet 7.5 mg PO QPM PRN (Reason: Pain) RF: 0 Discharge Orders: Discharge Order (Routine); Ordered 08/31/19 Ordered By: Silas Avilez Admission Data Admit Date/Time: 08/30/19 08:56 Attending Provider: Silas Avilez Admit Provider: Silas Avilez Primary Care Provider: Suzan Baker Other Interventions: Discharge Summary Assessment (RN) Last Done: 08/31/19 12:49 DC Date/Time DO NOT enter until pt leaves facility: 08/31/19 17:40
== END 2019-08-31 17:40 | disposition home health service (06) | DRG 470 ==
LOC: ASU 04:52 → 3E 08:56